=== PATIENT | male | born 1960 | race African-American/Black ===

== ENCOUNTER 2017-07-27 08:45 | Emergency (ER) | payer MEDICAID, OTHER ==
[~2017-07-27] VITALS: Ht 180.3 cm; Wt 88.0 kg
[~2017-07-27 08:45] MED LIST: ASPI-1159 PO; ATENOLOL; LISINOPRIL
[2017-07-27 10:03] LABS: HEMATOCRIT 40.9 % (42.0-52.0); MEAN CORPUSCULAR HEMOGLOBIN 32.1 pg (28.0-32.0); MEAN CORPUSCULAR VOLUME 93.8 fL (80.0-94.0); PLATELET 112 x1000/uL (130-400); RED BLOOD CELL COUNT 4.37 mill/uL (4.7-6.1); RED CELL DISTRIBUTION WIDTH 13.5 % (11.6-14.6)
[2017-07-27 10:17] LABS: CARBON DIOXIDE 23 mEq/L (21-32); CHLORIDE 104 mEq/L (98-107); TROPONIN I < 0.02 ng/mL (0.00-0.04)
[2017-07-27] MEDS ORDERED: HYDROCODONE/ACETAMINOPHEN 5/325MG TABLET PO ONE (11:30)
[2017-07-27 11:36] VITALS: BP 136/96
== END 2017-07-27 11:41 | disposition home or self-care (01) ==
LOC: ER 08:59
DX: S20.212A Contusion of left front wall of thorax, initial encounter (principal); I10 Essential (primary) hypertension; M19.90 Unspecified osteoarthritis, unspecified site; M10.9 Gout, unspecified; F17.210 Nicotine dependence, cigarettes, uncomplicated; Z88.8 Allergy status to other drugs, medicaments and biological substances; Z91.041 Radiographic dye allergy status; Z79.82 Long term (current) use of aspirin; W10.8XXA Fall (on) (from) other stairs and steps, initial encounter; Y93.89 Activity, other specified; Y92.018 Other place in single-family (private) house as the place of occurrence of the external cause
CPT/HCPCS: 36415; 71010; 71100; 80048; 84484; 85027; 93005; 99285

== ENCOUNTER 2018-01-11 14:56 | Emergency (ER) | payer OTHER ==
[~2018-01-11] VITALS: Ht 180.3 cm; Wt 87.0 kg
[2018-01-11 15:14] VITALS: BP 149/88
[2018-01-11] MEDS ORDERED: BACITRACIN ZINC OINT UDPKT TOP ONE (15:30)
[2018-01-11] MEDS ORDERED: LIDOCAINE HCL 1% 20ML VIAL (Pyxis) INJ MC ONE ×2 (15:30→17:45)
[2018-01-11] MEDS ORDERED: TETANUS, DIPHTHERIA, PERTUSSIS VAC/PF 0.5ML (>7YR OLD) IM ONE (15:30)
[2018-01-11] MEDS ORDERED: HYDROCODONE/ACETAMINOPHEN 5/325MG TABLET PO ONE (17:30)
[2018-01-11] MEDS ORDERED: LIDOCAINE HCL/PF 1% 10 MG/ML 5ML VIAL IJ SCH (18:15)
== END 2018-01-11 18:55 | disposition home or self-care (01) ==
LOC: ER 16:10
DX: S81.812A Laceration without foreign body, left lower leg, initial encounter (principal); I10 Essential (primary) hypertension; Z88.8 Allergy status to other drugs, medicaments and biological substances; Z91.041 Radiographic dye allergy status; W26.8XXA Contact with other sharp object(s), not elsewhere classified, initial encounter; Y93.89 Activity, other specified; Y92.810 Car as the place of occurrence of the external cause
CPT/HCPCS: 12004; 90471; 90715; 99283; J3490; Z7610

== ENCOUNTER 2018-01-28 14:07 | Emergency (ER) | payer OTHER ==
[~2018-01-28] VITALS: Ht 167.6 cm; Wt 88.0 kg
[2018-01-28 14:17] VITALS: BP 146/78
== END 2018-01-28 14:38 | disposition home or self-care (01) ==
LOC: ER 14:25
DX: L03.116 Cellulitis of left lower limb (principal); I10 Essential (primary) hypertension; M10.9 Gout, unspecified; Z79.82 Long term (current) use of aspirin; Z88.8 Allergy status to other drugs, medicaments and biological substances
CPT/HCPCS: 99283

== ENCOUNTER 2018-02-13 11:37 | Emergency (ER) | payer OTHER ==
[~2018-02-13] VITALS: Ht 167.6 cm; Wt 86.0 kg
[2018-02-13 11:42] VITALS: BP 107/75
== END 2018-02-13 12:22 | disposition home or self-care (01) ==
LOC: ER 11:50
DX: M67.431 Ganglion, right wrist (principal); M70.21 Olecranon bursitis, right elbow; M19.90 Unspecified osteoarthritis, unspecified site; M10.9 Gout, unspecified; Z88.8 Allergy status to other drugs, medicaments and biological substances; Z79.82 Long term (current) use of aspirin
CPT/HCPCS: 99281

== ENCOUNTER 2018-04-03 21:12 | Emergency (ER) | payer OTHER ==
[~2018-04-03] VITALS: Ht 180.3 cm; Wt 87.0 kg
[2018-04-03] MEDS ORDERED: SODIUM CHLORIDE 0.9% 1,000 ML IV ONE (23:45)
[2018-04-04 01:33] LABS: HEMATOCRIT. 28.6 % (42.0-52.0); HEMOGLOBIN. 9.3 g/dL (14.0-18.0); MEAN CORPUSCULAR HEMOGLOBIN 30.4 pg (28.0-32.0); MEAN CORPUSCULAR VOLUME 93.7 fL (80.0-94.0); MEAN PLATELET VOLUME 7.7 fl (7.4-10.4); PLATELET 188 x1000/uL (130-400); RED BLOOD CELL COUNT 3.05 mill/uL (4.7-6.1)
[2018-04-04 01:38] LABS: INR 1.1
[2018-04-04 01:42] LABS: CHLORIDE 109 mEq/L (98-107)
[2018-04-04 02:47] LABS: PLATELET ESTIMATE NORMAL
[2018-04-04 03:54] VITALS: BP 118/70
== END 2018-04-04 03:57 | disposition left against medical advice (07) ==
LOC: ER 21:12 → CANBEDREQ 04-04 04:07
DX: D64.9 Anemia, unspecified (principal); N28.9 Disorder of kidney and ureter, unspecified; G70.9 Myoneural disorder, unspecified
CPT/HCPCS: 36415; 80053; 85025; 85610; 86850; 86900; 86901; 93005; 96360; 96361; 99285; J7030

== ENCOUNTER 2018-06-08 08:52 | Emergency (ER) | payer OTHER ==
[~2018-06-08] VITALS: Ht 177.8 cm; Wt 87.0 kg
[2018-06-08] MEDS ORDERED: HYDROCODONE/ACETAMINOPHEN 5/325MG TABLET PO ONE (12:30)
[2018-06-08] MEDS ORDERED: KETOROLAC 60MG/2ML VIAL IM ONE (14:00)
[2018-06-08 15:18] VITALS: BP 149/98
== END 2018-06-08 15:25 | disposition home or self-care (01) ==
LOC: ER 08:52
DX: S13.8XXA Sprain of joints and ligaments of other parts of neck, initial encounter (principal); G70.00 Myasthenia gravis without (acute) exacerbation; I10 Essential (primary) hypertension; M19.90 Unspecified osteoarthritis, unspecified site; M10.9 Gout, unspecified; Z88.8 Allergy status to other drugs, medicaments and biological substances; Z91.041 Radiographic dye allergy status; X58.XXXA Exposure to other specified factors, initial encounter; Y93.89 Activity, other specified; Y92.018 Other place in single-family (private) house as the place of occurrence of the external cause
CPT/HCPCS: 72125; 93005; 96372; 99284; J1885

== ENCOUNTER 2019-04-27 08:37 | Inpatient (IN) | payer OTHER ==
[~2019-04-27] VITALS: Ht 175.3 cm; Wt 92.5 kg
[2019-04-27] VITALS (50 sets, daily range): BP systolic 71–174; BP diastolic 18–112
[~2019-04-27 08:37] MED LIST changes: -ASPI-1159 PO; +ASPI-1393 PO
[2019-04-27] MEDS ORDERED: SODIUM CHLORIDE 0.9% 1,000 ML IV ONE (08:56)
[2019-04-27] MEDS ORDERED: ONDANSETRON HCL 4MG/2ML INJ IV STA ×2 (08:56→10:01)
[2019-04-27] MEDS ORDERED: MORPHINE SULFATE 4 MG/ML CPJ (NOT FOR IM USE) IV STA ×2 (08:56→10:01)
[2019-04-27 09:30] LABS: HEMATOCRIT. 42.5 % (42.0-52.0); HEMOGLOBIN. 13.7 g/dL (14.0-18.0); MEAN CORPUSCULAR VOLUME 90.5 fL (80.0-94.0); MEAN PLATELET VOLUME 8.5 fl (7.4-10.4); PLATELET 285 x1000/uL (130-400); RED CELL DISTRIBUTION WIDTH 13.9 % (11.6-14.6)
[2019-04-27 09:36] LABS: CHLORIDE 112 mEq/L (98-107)
[2019-04-27 09:38] LABS: INR 1.1; PARTIAL THROMBOPLASTIN TIME 26.1 sec (23.4-31.0); PROTHROMBIN TIME 11.5 sec (9.6-11.0)
[2019-04-27] MEDS ORDERED: CALCIUM GLUCONATE 100MG/ML 10ML VIAL IV ONE (10:15)
[2019-04-27] MEDS ORDERED: PIPERACILLIN/TAZ 3.375G PREMIX 50 ML IV ONE (10:15)
[2019-04-27] MEDS ORDERED: DEXTROSE 50% WATER 50ML SYRINGE IV ONE (10:15)
[2019-04-27] MEDS ORDERED: SODIUM POLYSTYRENE SULFONATE 15 G/60 ML BOT PO ONE (10:15)
[2019-04-27] MEDS ORDERED: VANCOMYCIN 1 G PREMIX 200 ML IV ONE (10:15)
[2019-04-27] MEDS ORDERED: ALBUTEROL (0.083%) 2.5MG/3ML NEB HHN ONE (10:15)
[2019-04-27] MEDS ORDERED: INSULIN REGULAR (HUMULIN R) 300UNITS/3ML IV ONE (10:15)
[2019-04-27] MEDS ORDERED: SODIUM CHLORIDE 0.9% 1000ML BAG (SEPSIS BOLUS) IV ONE (10:15)
[2019-04-27] MEDS ORDERED: SODIUM BICARBONATE 8.4% 1 MEQ/ML 50ML SYR IV ONE (10:15)
[2019-04-27] MEDS ORDERED: PIPERACILLIN/TAZOBACTAM 3.375 G in DEXT 5% WATER 100 ML IV SCH (11:00)
[2019-04-27] MEDS ORDERED: ONDANSETRON HCL 4MG/2ML INJ IV PRN (11:00)
[2019-04-27 11:08] LABS: PLATELET ESTIMATE NORMAL
[2019-04-27] MEDS ORDERED: LIDOCAINE HCL 1% 20ML VIAL (Pyxis) INJ ONE (11:27)
[2019-04-27] MEDS: LORAZEPAM 2MG/ML CPJ IV PRN (13:42)
[2019-04-27] MEDS: SODIUM CHLORIDE 0.45% 1,000 ML IV SCH ×2 (13:43→20:38)
[2019-04-27 14:54] LABS: HEPATITIS B SURFACE ANTIGEN NEGATIVE
[2019-04-27] MEDS: ENOXAPARIN 30MG/0.3ML SYR SUBCUT SCH (15:22)
[2019-04-27 15:24] LABS: HEPATITIS A AB IGM NEGATIVE (NEGATIVE)
[2019-04-27] MEDS: NOREPINEPHRINE 8 MG in DEXT 5% WATER 242 ML IV PRN (15:30)
[2019-04-27] MEDS: PIPERACILLIN/TAZOBACTAM 2.25 G in DEXTROSE 5% WATER 50 ML IV SCH ×2 (18:00→20:35)
[2019-04-27] MEDS ORDERED: VANCOMYCIN 750 MG PREMIX 150 ML IV SCH (21:00)
[2019-04-27 21:19] LABS: BG BASE EXCESS -3.7 mmol/L (-2.0-2.0); BG CARBOXYHEMOGLOBIN 0.3 % (0.5-1.5); BG DEOXYHEMOGLOBIN 1.5 % (0.0-5.0); BG FRACTION INSPIRED OXYGEN 100; BG HCO3 ACT 18.2 mmol/L (22.0-26.0); BG METHEMOGLOBIN 0.3 % (0.0-1.5); BG OXYGEN SATURATION 98.5 % (92.0-98.5); BG OXYHEMOGLOBIN 97.9 % (94.0-97.0); BG PCO2 25.3 mmHg (35.0-45.0); BG PH 7.475 (7.350-7.450); BG PO2 414.9 mmHg (75.0-100.0); BG SAMPLE SITE RIGHT RADIAL; BG TOTAL HEMOGLOBIN 13.6 g/dL (12.0-18.0); BG VENT MODE MASK - NRB
[2019-04-27] MEDS: LEVETIRACETAM 250 MG in SODIUM CHLORIDE 0.9% 100 ML IV SCH (21:35)
[2019-04-28] VITALS (56 sets, daily range): BP systolic 54–130; BP diastolic 31–79
[2019-04-28] MEDS: PIPERACILLIN/TAZOBACTAM 2.25 G in DEXTROSE 5% WATER 50 ML IV SCH ×3 (03:36→18:48)
[2019-04-28 05:12] LABS: HEMATOCRIT. 40.8 % (42.0-52.0); HEMOGLOBIN. 13.2 g/dL (14.0-18.0); MEAN CORPUSCULAR HEMOGLOBIN 29.2 pg (28.0-32.0); MEAN CORPUSCULAR VOLUME 90.4 fL (80.0-94.0); MEAN PLATELET VOLUME 8.4 fl (7.4-10.4); PLATELET 141 x1000/uL (130-400); RED BLOOD CELL COUNT 4.52 mill/uL (4.7-6.1); RED CELL DISTRIBUTION WIDTH 13.6 % (11.6-14.6)
[2019-04-28 05:17] LABS: CHLORIDE 103 mEq/L (98-107)
[2019-04-28] MEDS: SODIUM CHLORIDE 0.45% 1,000 ML IV SCH ×4 (05:39→22:50)
[2019-04-28 06:41] LABS: CLARITY URINE CLOUDY (CLEAR); COLOR URINE DARK YELLOW (YELLOW); KETONES URINE NEGATIVE (NEGATIVE); LEUKOCYTE ESTERASE URINE 1+ (NEGATIVE); NITRITE URINE NEGATIVE (NEGATIVE); OCCULT BLOOD URINE 3+ (NEGATIVE); PROTEIN URINE 2+ (NEGATIVE); SPECIFIC GRAVITY URINE 1.019 (1.005-1.030)
[2019-04-28 07:09] LABS: *AMPHETAMINES SCREEN URINE NEGATIVE (NEGATIVE); *BARBITURATES SCREEN URINE NEGATIVE (NEGATIVE); *COCAINE SCREEN URINE NEGATIVE (NEGATIVE)
[2019-04-28 07:10] LABS: *BENZODIAZEPINES SCREEN URINE NEGATIVE (NEGATIVE); CANNABINOID URINE SCREEN NEGATIVE (NEGATIVE); METHADONE URINE SCREEN NEGATIVE (NEGATIVE); OPIATES URINE SCREEN PRESUMTIVE POSITIVE (NEGATIVE); PHENCYCLIDINE URINE SCREEN NEGATIVE (NEGATIVE)
[2019-04-28 07:23] LABS: PLATELET ESTIMATE NORMAL
[2019-04-28] MEDS: LEVETIRACETAM 250 MG in SODIUM CHLORIDE 0.9% 100 ML IV SCH ×2 (08:47→20:53)
[2019-04-28] MEDS: MORPHINE SULFATE 2 MG/ML CPJ (NOT FOR IM USE) IV PRN ×2 (11:26→21:10)
[2019-04-28] MEDS ORDERED: IPRATROPIUM/ALBUTEROL 0.5-3(2.5)MG/3ML NEB HHN PRN (12:45)
[2019-04-28 13:13] LABS: ANTI-NUCLEAR ANTIBODIES DIRECT Negative (Negative)
[2019-04-28] MEDS: THIAMINE HCL 100 MG in SODIUM CHLORIDE 0.9% 50 ML IV SCH (13:33)
[2019-04-28] MEDS: ENOXAPARIN 30MG/0.3ML SYR SUBCUT SCH (13:40)
[2019-04-28 15:51] LABS: T4 FREE 0.71 ng/dL (0.76-1.46)
[2019-04-28] MEDS: IPRATROPIUM/ALBUTEROL 0.5-3(2.5)MG/3ML NEB HHN SCH ×2 (16:07→20:13)
[2019-04-28] MEDS: ACETYLCYSTEINE 100MG/ML 10% VIAL 4ML INH SCH (16:07)
[2019-04-28] MEDS: NOREPINEPHRINE 8 MG in DEXT 5% WATER 242 ML IV PRN (20:17)
[2019-04-29] VITALS (71 sets, daily range): BP systolic 48–217; BP diastolic 26–185
[2019-04-29] MEDS: PIPERACILLIN/TAZOBACTAM 2.25 G in DEXTROSE 5% WATER 50 ML IV SCH ×3 (01:34→18:54)
[2019-04-29] MEDS: IPRATROPIUM/ALBUTEROL 0.5-3(2.5)MG/3ML NEB HHN SCH ×4 (01:38→20:40)
[2019-04-29 05:07] LABS: HEMATOCRIT. 34.3 % (42.0-52.0); HEMOGLOBIN. 11.3 g/dL (14.0-18.0); MEAN CORPUSCULAR HEMOGLOBIN 29.4 pg (28.0-32.0); MEAN CORPUSCULAR VOLUME 89.2 fL (80.0-94.0); MEAN PLATELET VOLUME 8.4 fl (7.4-10.4); PLATELET 115 x1000/uL (130-400); RED BLOOD CELL COUNT 3.84 mill/uL (4.7-6.1); RED CELL DISTRIBUTION WIDTH 13.3 % (11.6-14.6)
[2019-04-29] MEDS: SODIUM CHLORIDE 0.45% 1,000 ML IV SCH ×2 (05:13→18:55)
[2019-04-29 05:15] LABS: HIV SCREEN 4G Non Reactive (Non Reactive)
[2019-04-29] MEDS ORDERED: LEVOTHYROXINE SODIUM 25MCG TABLET PO SCH (06:45)
[2019-04-29 08:07] LABS: COMPLEMENT C3 176 mg/dL (82-167)
[2019-04-29] MEDS: THIAMINE HCL 100 MG in SODIUM CHLORIDE 0.9% 50 ML IV SCH (08:40)
[2019-04-29] MEDS: ACETYLCYSTEINE 100MG/ML 10% VIAL 4ML INH SCH ×2 (08:56→13:40)
[2019-04-29] MEDS: LEVETIRACETAM 250 MG in SODIUM CHLORIDE 0.9% 100 ML IV SCH ×2 (09:25→20:59)
[2019-04-29] MEDS ORDERED: VANCOMYCIN 1500MG in DEXTROSE 5% WATER 250ML IV SCH (10:00)
[2019-04-29 12:24] LABS: PLATELET ESTIMATE SLIGHTLY DECREASED
[2019-04-29] MEDS: ENOXAPARIN 30MG/0.3ML SYR SUBCUT SCH (14:30)
[2019-04-29] MEDS: LEVOTHYROXINE SODIUM 100 MCG/ VIAL IV SCH (21:00)
[2019-04-29] MEDS ORDERED: PHENYLEPHRINE 20 MG in DEXT 5% WATER 498 ML IV PRN (22:45)
[2019-04-29] MEDS: MORPHINE SULFATE 2 MG/ML CPJ (NOT FOR IM USE) IV PRN (23:06)
[2019-04-30] VITALS (40 sets, daily range): BP systolic 44–128; BP diastolic 37–81
[2019-04-30] MEDS: IPRATROPIUM/ALBUTEROL 0.5-3(2.5)MG/3ML NEB HHN SCH ×5 (02:31→22:24)
[2019-04-30] MEDS: PIPERACILLIN/TAZOBACTAM 2.25 G in DEXTROSE 5% WATER 50 ML IV SCH ×2 (02:55→12:41)
[2019-04-30 05:03] LABS: HEMATOCRIT. 35.1 % (42.0-52.0); HEMOGLOBIN. 11.5 g/dL (14.0-18.0); MEAN CORPUSCULAR HEMOGLOBIN 29.2 pg (28.0-32.0); MEAN CORPUSCULAR VOLUME 89.3 fL (80.0-94.0); MEAN PLATELET VOLUME 8.4 fl (7.4-10.4); PLATELET 137 x1000/uL (130-400); RED BLOOD CELL COUNT 3.93 mill/uL (4.7-6.1); RED CELL DISTRIBUTION WIDTH 13.5 % (11.6-14.6)
[2019-04-30] MEDS ORDERED: LEVOTHYROXINE SODIUM 75MCG TABLET PO SCH (06:30)
[2019-04-30 07:01] LABS: PLATELET ESTIMATE NORMAL
[2019-04-30] MEDS: THIAMINE HCL 100 MG in SODIUM CHLORIDE 0.9% 50 ML IV SCH (08:24)
[2019-04-30] MEDS: LEVETIRACETAM 250 MG in SODIUM CHLORIDE 0.9% 100 ML IV SCH ×2 (08:25→20:59)
[2019-04-30] MEDS: ACETYLCYSTEINE 100MG/ML 10% VIAL 4ML INH SCH (09:48)
[2019-04-30] MEDS: LEVOTHYROXINE SODIUM 100 MCG/ VIAL IV SCH (10:08)
[2019-04-30] MEDS ORDERED: LACTULOSE 20G/30ML UDC PO NR (11:15)
[2019-04-30] MEDS: SODIUM CHLORIDE 0.45% 1,000 ML IV SCH (11:45)
[2019-04-30] MEDS ORDERED: CEFAZOLIN SODIUM 1000MG/VIAL IV SCH (13:30)
[2019-04-30] MEDS: MORPHINE SULFATE 2 MG/ML CPJ (NOT FOR IM USE) IV PRN ×2 (14:46→21:14)
[2019-04-30] MEDS: CEFAZOLIN 1000MG PREMIX 50 ML IV SCH (17:29)
[2019-04-30] MEDS: LORAZEPAM 2MG/ML CPJ IV PRN (21:22)
[2019-05-01] VITALS (11 sets, daily range): BP systolic 102–154; BP diastolic 56–99
[2019-05-01] MEDS: SODIUM CHLORIDE 0.45% 1,000 ML IV SCH ×2 (03:41→21:52)
[2019-05-01] MEDS: MORPHINE SULFATE 2 MG/ML CPJ (NOT FOR IM USE) IV PRN (06:42)
[2019-05-01 08:06] LABS: HEMATOCRIT. 30.2 % (42.0-52.0); HEMOGLOBIN. 9.9 g/dL (14.0-18.0); MEAN CORPUSCULAR HEMOGLOBIN 29.1 pg (28.0-32.0); MEAN CORPUSCULAR VOLUME 88.6 fL (80.0-94.0); MEAN PLATELET VOLUME 8.4 fl (7.4-10.4); PLATELET 114 x1000/uL (130-400); RED BLOOD CELL COUNT 3.41 mill/uL (4.7-6.1); RED CELL DISTRIBUTION WIDTH 13.4 % (11.6-14.6)
[2019-05-01 08:32] LABS: CHLORIDE 112 mEq/L (98-107)
[2019-05-01 08:45] LABS: PHOSPHORUS 2.6 mg/dL (2.5-4.9)
[2019-05-01 09:00] LABS: CREATINE KINASE 2875 IU/L (39-308)
[2019-05-01] MEDS: LEVETIRACETAM 250 MG in SODIUM CHLORIDE 0.9% 100 ML IV SCH ×2 (09:37→21:46)
[2019-05-01] MEDS: LEVOTHYROXINE SODIUM 100 MCG/ VIAL IV SCH (09:37)
[2019-05-01] MEDS: METOPROLOL TARTRATE 50MG TABLET PO SCH ×2 (09:54→21:51)
[2019-05-01 10:20] LABS: PLATELET ESTIMATE SLIGHTLY DECREASED
[2019-05-01] MEDS: IPRATROPIUM/ALBUTEROL 0.5-3(2.5)MG/3ML NEB HHN SCH ×3 (12:47→20:45)
[2019-05-01] MEDS ORDERED: ALBUMIN HUMAN 25GM/500ML (5%) IV SCH (15:00)
[2019-05-01] MEDS: CEFAZOLIN 1000MG PREMIX 50 ML IV SCH (15:08)
[2019-05-01] MEDS: PYRIDOSTIGMINE BROMIDE 60MG TABLET PO SCH ×2 (18:00→21:00)
[2019-05-02] VITALS (9 sets, daily range): BP systolic 127–161; BP diastolic 65–94
[2019-05-02] MEDS: ACETYLCYSTEINE 100MG/ML 10% VIAL 4ML INH SCH ×3 (01:50→14:03)
[2019-05-02] MEDS: IPRATROPIUM/ALBUTEROL 0.5-3(2.5)MG/3ML NEB HHN SCH ×4 (01:51→20:17)
[2019-05-02 08:13] LABS: HEMATOCRIT. 29.1 % (42.0-52.0); HEMOGLOBIN. 9.6 g/dL (14.0-18.0); MEAN CORPUSCULAR HEMOGLOBIN 29.3 pg (28.0-32.0); MEAN CORPUSCULAR VOLUME 89.2 fL (80.0-94.0); MEAN PLATELET VOLUME 8.6 fl (7.4-10.4); PLATELET 110 x1000/uL (130-400); RED BLOOD CELL COUNT 3.27 mill/uL (4.7-6.1); RED CELL DISTRIBUTION WIDTH 13.6 % (11.6-14.6)
[2019-05-02 08:48] LABS: CHLORIDE 112 mEq/L (98-107)
[2019-05-02] MEDS: LEVETIRACETAM 250 MG in SODIUM CHLORIDE 0.9% 100 ML IV SCH ×2 (09:32→21:45)
[2019-05-02] MEDS: METOPROLOL TARTRATE 50MG TABLET PO SCH ×2 (09:32→21:46)
[2019-05-02] MEDS: LEVOTHYROXINE SODIUM 100 MCG/ VIAL IV SCH (09:32)
[2019-05-02] MEDS: PYRIDOSTIGMINE BROMIDE 60MG TABLET PO SCH ×4 (09:32→21:46)
[2019-05-02 10:06] LABS: PLATELET ESTIMATE DECREASED
[2019-05-02] MEDS: CEFAZOLIN 1000MG PREMIX 50 ML IV SCH (15:39)
[2019-05-03] VITALS (11 sets, daily range): BP systolic 131–172; BP diastolic 66–98
[2019-05-03] MEDS: IPRATROPIUM/ALBUTEROL 0.5-3(2.5)MG/3ML NEB HHN SCH ×4 (01:57→21:15)
[2019-05-03 05:19] LABS: HEMATOCRIT. 30.7 % (42.0-52.0); HEMOGLOBIN. 9.9 g/dL (14.0-18.0); MEAN CORPUSCULAR HEMOGLOBIN 28.6 pg (28.0-32.0); MEAN CORPUSCULAR VOLUME 88.4 fL (80.0-94.0); MEAN PLATELET VOLUME 8.4 fl (7.4-10.4); PLATELET 121 x1000/uL (130-400); RED BLOOD CELL COUNT 3.48 mill/uL (4.7-6.1); RED CELL DISTRIBUTION WIDTH 13.7 % (11.6-14.6)
[2019-05-03 06:02] LABS: CHLORIDE 112 mEq/L (98-107)
[2019-05-03 06:29] LABS: CREATINE KINASE 1425 IU/L (39-308)
[2019-05-03] MEDS: ACETYLCYSTEINE 100MG/ML 10% VIAL 4ML INH SCH ×2 (08:15→08:55)
[2019-05-03] MEDS: LEVOTHYROXINE SODIUM 100 MCG/ VIAL IV SCH (08:56)
[2019-05-03] MEDS: LEVETIRACETAM 250 MG in SODIUM CHLORIDE 0.9% 100 ML IV SCH ×2 (08:56→20:22)
[2019-05-03] MEDS: METOPROLOL TARTRATE 50MG TABLET PO SCH ×2 (08:57→20:20)
[2019-05-03] MEDS: PYRIDOSTIGMINE BROMIDE 60MG TABLET PO SCH ×4 (08:57→20:20)
[2019-05-03] MEDS ORDERED: POTASSIUM CHLORIDE 20MEQ/PACKET PO NR (10:45)
[2019-05-03 14:15] LABS: PLATELET ESTIMATE DECREAS
[2019-05-03] MEDS: CEFAZOLIN 1000MG PREMIX 50 ML IV SCH (15:08)
[2019-05-03] MEDS ORDERED: ACETAMINOPHEN 325MG TABLET PO PRN (21:15)
[2019-05-03] MEDS ORDERED: CLONIDINE 0.1MG TABLET PO PRN (21:15)
[2019-05-04] VITALS (14 sets, daily range): BP systolic 133–158; BP diastolic 68–102
[2019-05-04] MEDS: IPRATROPIUM/ALBUTEROL 0.5-3(2.5)MG/3ML NEB HHN SCH ×5 (00:52→20:01)
[2019-05-04] MEDS ORDERED: DILTIAZEM HCL 5MG/ML 5ML VIAL IV NR (06:21)
[2019-05-04 06:39] LABS: HEMOGLOBIN. 9.9 g/dL (14.0-18.0); MEAN CORPUSCULAR VOLUME 87.7 fL (80.0-94.0); MEAN PLATELET VOLUME 8.5 fl (7.4-10.4); PLATELET 146 x1000/uL (130-400); RED BLOOD CELL COUNT 3.42 mill/uL (4.7-6.1); RED CELL DISTRIBUTION WIDTH 13.9 % (11.6-14.6)
[2019-05-04 07:30] LABS: CHLORIDE 111 mEq/L (98-107)
[2019-05-04 08:12] LABS: CREATINE KINASE 1273 IU/L (39-308)
[2019-05-04] MEDS: PYRIDOSTIGMINE BROMIDE 60MG TABLET PO SCH ×5 (09:00→21:00)
[2019-05-04] MEDS ORDERED: HYDROCODONE/ACETAMINOPHEN 5/325MG TABLET PO PRN (09:45)
[2019-05-04] MEDS: LEVETIRACETAM 250 MG in SODIUM CHLORIDE 0.9% 100 ML IV SCH ×2 (09:56→21:24)
[2019-05-04] MEDS: LEVOTHYROXINE SODIUM 100 MCG/ VIAL IV SCH (09:56)
[2019-05-04] MEDS: METOPROLOL TARTRATE 50MG TABLET PO SCH ×2 (09:56→21:23)
[2019-05-04 10:11] LABS: SACCHAROMYCES CEREVISIAE IGG 58.7 Units (0.0-24.9)
[2019-05-04 10:32] LABS: PLATELET ESTIMATE NORMAL
[2019-05-04 15:11] LABS: ATYPICAL pANCA <1:20 titer (Neg:<1:20)
[2019-05-04] MEDS: CEFAZOLIN 1000MG PREMIX 50 ML IV SCH (15:50)
[2019-05-04] MEDS: MORPHINE SULFATE 2 MG/ML CPJ (NOT FOR IM USE) IV PRN ×2 (15:50→21:22)
[2019-05-04] MEDS: DILTIAZEM HCL 125 MG in DEXT 5% WATER 100 ML IV PRN (21:26)
[2019-05-05] VITALS (17 sets, daily range): BP systolic 122–154; BP diastolic 66–101
[2019-05-05] MEDS: IPRATROPIUM/ALBUTEROL 0.5-3(2.5)MG/3ML NEB HHN SCH ×4 (03:35→21:48)
[2019-05-05 06:59] LABS: HEMATOCRIT. 27.7 % (42.0-52.0); HEMOGLOBIN. 9.2 g/dL (14.0-18.0); MEAN CORPUSCULAR HEMOGLOBIN 28.8 pg (28.0-32.0); MEAN CORPUSCULAR VOLUME 86.9 fL (80.0-94.0); MEAN PLATELET VOLUME 8.4 fl (7.4-10.4); PLATELET 180 x1000/uL (130-400); RED BLOOD CELL COUNT 3.19 mill/uL (4.7-6.1); RED CELL DISTRIBUTION WIDTH 13.7 % (11.6-14.6)
[2019-05-05 07:45] LABS: CHLORIDE 109 mEq/L (98-107)
[2019-05-05] MEDS ORDERED: LIDOCAINE HCL 1% 20ML VIAL (Pyxis) INJ ONE (07:49)
[2019-05-05 08:06] LABS: CREATINE KINASE 910 IU/L (39-308)
[2019-05-05] MEDS: PYRIDOSTIGMINE BROMIDE 60MG TABLET PO SCH ×4 (08:45→21:42)
[2019-05-05] MEDS: METOPROLOL TARTRATE 50MG TABLET PO SCH ×2 (08:45→21:31)
[2019-05-05] MEDS: LEVETIRACETAM 250 MG in SODIUM CHLORIDE 0.9% 100 ML IV SCH ×2 (08:45→21:31)
[2019-05-05] MEDS: LEVOTHYROXINE SODIUM 100 MCG/ VIAL IV SCH (08:52)
[2019-05-05] MEDS: DILTIAZEM HCL 125 MG in DEXT 5% WATER 100 ML IV PRN ×2 (13:10→23:59)
[2019-05-05] MEDS: CEFAZOLIN 1000MG PREMIX 50 ML IV SCH ×2 (15:00→21:31)
[2019-05-05 17:38] LABS: PLATELET ESTIMATE NORMAL
[2019-05-05] MEDS: MORPHINE SULFATE 2 MG/ML CPJ (NOT FOR IM USE) IV PRN ×2 (18:58→22:35)
[2019-05-05] MEDS: BISACODYL 5MG TABLET PO PRN (21:31)
[2019-05-06] VITALS (13 sets, daily range): BP systolic 126–159; BP diastolic 53–99
[2019-05-06] MEDS: IPRATROPIUM/ALBUTEROL 0.5-3(2.5)MG/3ML NEB HHN SCH ×4 (02:32→21:52)
[2019-05-06] MEDS: MORPHINE SULFATE 2 MG/ML CPJ (NOT FOR IM USE) IV PRN ×4 (04:32→22:26)
[2019-05-06] MEDS: CEFAZOLIN 1000MG PREMIX 50 ML IV SCH ×3 (05:58→22:27)
[2019-05-06] MEDS: LEVETIRACETAM 250 MG in SODIUM CHLORIDE 0.9% 100 ML IV SCH ×2 (08:36→21:34)
[2019-05-06] MEDS: LEVOTHYROXINE SODIUM 100 MCG/ VIAL IV SCH (08:36)
[2019-05-06] MEDS: PYRIDOSTIGMINE BROMIDE 60MG TABLET PO SCH ×4 (09:00→21:00)
[2019-05-06] MEDS: METOPROLOL TARTRATE 50MG TABLET PO SCH ×2 (09:25→21:34)
[2019-05-06 09:58] LABS: HEMATOCRIT. 29.2 % (42.0-52.0); HEMOGLOBIN. 9.6 g/dL (14.0-18.0); MEAN CORPUSCULAR VOLUME 88.5 fL (80.0-94.0); MEAN PLATELET VOLUME 8.3 fl (7.4-10.4); PLATELET 207 x1000/uL (130-400); RED CELL DISTRIBUTION WIDTH 13.5 % (11.6-14.6)
[2019-05-06 10:13] LABS: CHLORIDE 108 mEq/L (98-107)
[2019-05-06 10:31] LABS: CREATINE KINASE 877 IU/L (39-308)
[2019-05-06 10:39] LABS: PLATELET ESTIMATE NORMAL
[2019-05-06 13:10] LABS: AChR BLOCKING ABS SERUM 22 % (0-25)
[2019-05-06] MEDS: DILTIAZEM HCL 125 MG in DEXT 5% WATER 100 ML IV PRN (15:13)
[2019-05-07] VITALS (12 sets, daily range): BP systolic 114–145; BP diastolic 58–90
[2019-05-07] MEDS: IPRATROPIUM/ALBUTEROL 0.5-3(2.5)MG/3ML NEB HHN SCH ×4 (01:35→20:01)
[2019-05-07] MEDS: MORPHINE SULFATE 2 MG/ML CPJ (NOT FOR IM USE) IV PRN ×5 (02:37→20:23)
[2019-05-07] MEDS: CEFAZOLIN 1000MG PREMIX 50 ML IV SCH ×3 (05:57→22:33)
[2019-05-07 06:33] LABS: HEMATOCRIT. 27.5 % (42.0-52.0); HEMOGLOBIN. 9.2 g/dL (14.0-18.0); MEAN CORPUSCULAR HEMOGLOBIN 28.9 pg (28.0-32.0); MEAN CORPUSCULAR VOLUME 86.8 fL (80.0-94.0); MEAN PLATELET VOLUME 7.9 fl (7.4-10.4); PLATELET 204 x1000/uL (130-400); RED BLOOD CELL COUNT 3.17 mill/uL (4.7-6.1); RED CELL DISTRIBUTION WIDTH 13.6 % (11.6-14.6)
[2019-05-07 07:23] LABS: CHLORIDE 106 mEq/L (98-107)
[2019-05-07 08:08] LABS: PLATELET ESTIMATE NORMAL
[2019-05-07] MEDS: DILTIAZEM HCL 125 MG in DEXT 5% WATER 100 ML IV PRN ×2 (09:02→23:59)
[2019-05-07] MEDS: PYRIDOSTIGMINE BROMIDE 60MG TABLET PO SCH ×4 (09:02→20:20)
[2019-05-07] MEDS: LEVETIRACETAM 250 MG in SODIUM CHLORIDE 0.9% 100 ML IV SCH ×2 (09:02→20:21)
[2019-05-07] MEDS: LEVOTHYROXINE SODIUM 100 MCG/ VIAL IV SCH (09:02)
[2019-05-07] MEDS: METOPROLOL TARTRATE 50MG TABLET PO SCH ×2 (09:03→20:20)
[2019-05-07] MEDS: CYCLOBENZAPRINE 10MG TABLET PO PRN (20:21)
[2019-05-08] VITALS (12 sets, daily range): BP systolic 120–157; BP diastolic 71–102
[2019-05-08] MEDS: IPRATROPIUM/ALBUTEROL 0.5-3(2.5)MG/3ML NEB HHN SCH ×4 (02:12→20:12)
[2019-05-08] MEDS: MORPHINE SULFATE 2 MG/ML CPJ (NOT FOR IM USE) IV PRN ×5 (02:21→20:23)
[2019-05-08] MEDS: CYCLOBENZAPRINE 10MG TABLET PO PRN ×2 (05:12→18:20)
[2019-05-08] MEDS: CEFAZOLIN 1000MG PREMIX 50 ML IV SCH ×3 (05:13→21:02)
[2019-05-08 07:14] LABS: HEMATOCRIT. 29.4 % (42.0-52.0); HEMOGLOBIN. 9.5 g/dL (14.0-18.0); MEAN CORPUSCULAR HEMOGLOBIN 28.2 pg (28.0-32.0); MEAN CORPUSCULAR VOLUME 87.4 fL (80.0-94.0); MEAN PLATELET VOLUME 7.8 fl (7.4-10.4); PLATELET 228 x1000/uL (130-400); RED BLOOD CELL COUNT 3.36 mill/uL (4.7-6.1); RED CELL DISTRIBUTION WIDTH 13.7 % (11.6-14.6)
[2019-05-08 07:20] LABS: CHLORIDE 106 mEq/L (98-107)
[2019-05-08] MEDS: PYRIDOSTIGMINE BROMIDE 60MG TABLET PO SCH ×4 (09:00→20:03)
[2019-05-08] MEDS: LEVETIRACETAM 250 MG in SODIUM CHLORIDE 0.9% 100 ML IV SCH ×2 (09:14→20:02)
[2019-05-08] MEDS: LEVOTHYROXINE SODIUM 100 MCG/ VIAL IV SCH (09:15)
[2019-05-08] MEDS: METOPROLOL TARTRATE 50MG TABLET PO SCH (09:17)
[2019-05-08] MEDS ORDERED: MAGNESIUM 2 G PREMIX 50 ML IV NR (14:00)
[2019-05-08 14:21] LABS: CLARITY URINE CLEAR (CLEAR); COLOR URINE YELLOW (YELLOW); KETONES URINE NEGATIVE (NEGATIVE); LEUKOCYTE ESTERASE URINE NEGATIVE (NEGATIVE); NITRITE URINE NEGATIVE (NEGATIVE); OCCULT BLOOD URINE 1+ (NEGATIVE); PROTEIN URINE TRACE (NEGATIVE); SPECIFIC GRAVITY URINE 1.014 (1.005-1.030)
[2019-05-08] MEDS: DIPHENHYDRAMINE 25MG CAPSULE PO PRN (18:19)
[2019-05-08 19:40] LABS: PLATELET ESTIMATE NORMAL
[2019-05-08] MEDS: METOPROLOL TARTRATE 100MG TABLET PO SCH (20:03)
[2019-05-09] VITALS (12 sets, daily range): BP systolic 105–162; BP diastolic 68–89
[2019-05-09] MEDS: IPRATROPIUM/ALBUTEROL 0.5-3(2.5)MG/3ML NEB HHN SCH ×3 (01:22→15:06)
[2019-05-09] MEDS: CEFAZOLIN 1000MG PREMIX 50 ML IV SCH ×3 (05:35→20:58)
[2019-05-09] MEDS: CYCLOBENZAPRINE 10MG TABLET PO PRN (05:43)
[2019-05-09] MEDS: MORPHINE SULFATE 2 MG/ML CPJ (NOT FOR IM USE) IV PRN ×4 (05:44→21:07)
[2019-05-09] MEDS: DIPHENHYDRAMINE 25MG CAPSULE PO PRN ×3 (05:53→20:58)
[2019-05-09 06:05] LABS: CHLORIDE 106 mEq/L (98-107)
[2019-05-09 06:24] LABS: HEMATOCRIT. 26.3 % (42.0-52.0); HEMOGLOBIN. 8.5 g/dL (14.0-18.0); MEAN CORPUSCULAR HEMOGLOBIN 28.4 pg (28.0-32.0); MEAN CORPUSCULAR VOLUME 87.3 fL (80.0-94.0); MEAN PLATELET VOLUME 7.9 fl (7.4-10.4); PLATELET 240 x1000/uL (130-400); RED BLOOD CELL COUNT 3.01 mill/uL (4.7-6.1); RED CELL DISTRIBUTION WIDTH 13.7 % (11.6-14.6)
[2019-05-09] MEDS: LEVETIRACETAM 250 MG in SODIUM CHLORIDE 0.9% 100 ML IV SCH ×2 (08:56→20:58)
[2019-05-09] MEDS: PYRIDOSTIGMINE BROMIDE 60MG TABLET PO SCH ×4 (08:56→20:58)
[2019-05-09] MEDS: METOPROLOL TARTRATE 100MG TABLET PO SCH ×2 (08:56→20:58)
[2019-05-09] MEDS: LEVOTHYROXINE SODIUM 100 MCG/ VIAL IV SCH (08:57)
[2019-05-09 10:36] LABS: PLATELET ESTIMATE NORMAL
[2019-05-09 16:58] LABS: CREATINE KINASE 539 IU/L (39-308)
[2019-05-10] VITALS (12 sets, daily range): BP systolic 96–143; BP diastolic 57–91
[2019-05-10 05:30] LABS: HEMATOCRIT. 27.2 % (42.0-52.0); MEAN CORPUSCULAR HEMOGLOBIN 28.5 pg (28.0-32.0); MEAN CORPUSCULAR VOLUME 86.5 fL (80.0-94.0); MEAN PLATELET VOLUME 7.4 fl (7.4-10.4); PLATELET 265 x1000/uL (130-400); RED BLOOD CELL COUNT 3.15 mill/uL (4.7-6.1); RED CELL DISTRIBUTION WIDTH 13.5 % (11.6-14.6)
[2019-05-10 05:34] LABS: CHLORIDE 104 mEq/L (98-107)
[2019-05-10] MEDS: CEFAZOLIN 1000MG PREMIX 50 ML IV SCH ×3 (05:59→21:54)
[2019-05-10] MEDS: MORPHINE SULFATE 2 MG/ML CPJ (NOT FOR IM USE) IV PRN ×4 (07:04→21:55)
[2019-05-10] MEDS: LEVETIRACETAM 250 MG in SODIUM CHLORIDE 0.9% 100 ML IV SCH ×2 (08:47→21:54)
[2019-05-10] MEDS: METOPROLOL TARTRATE 100MG TABLET PO SCH ×2 (08:47→21:54)
[2019-05-10] MEDS: LEVOTHYROXINE SODIUM 100 MCG/ VIAL IV SCH (08:47)
[2019-05-10] MEDS: PYRIDOSTIGMINE BROMIDE 60MG TABLET PO SCH ×4 (08:48→21:55)
[2019-05-10 10:19] LABS: PLATELET ESTIMATE NORMAL
[2019-05-10] MEDS: FERROUS SULFATE 325MG TABLET PO SCH ×2 (13:16→18:37)
[2019-05-10] MEDS: DIPHENHYDRAMINE 25MG CAPSULE PO PRN ×2 (18:37→21:54)
[2019-05-10] MEDS: ASCORBIC ACID 500 MG TABLET PO SCH (21:54)
[2019-05-11] VITALS (10 sets, daily range): BP systolic 120–154; BP diastolic 70–96
[2019-05-11] MEDS: CYCLOBENZAPRINE 10MG TABLET PO PRN ×2 (00:26→09:17)
[2019-05-11] MEDS: MORPHINE SULFATE 2 MG/ML CPJ (NOT FOR IM USE) IV PRN ×7 (02:11→20:43)
[2019-05-11] MEDS: CEFAZOLIN 1000MG PREMIX 50 ML IV SCH ×3 (04:58→20:51)
[2019-05-11] MEDS: DIPHENHYDRAMINE 25MG CAPSULE PO PRN (06:08)
[2019-05-11 06:39] LABS: HEMATOCRIT. 27.1 % (42.0-52.0); HEMOGLOBIN. 9.1 g/dL (14.0-18.0); MEAN CORPUSCULAR HEMOGLOBIN 28.9 pg (28.0-32.0); MEAN CORPUSCULAR VOLUME 86.4 fL (80.0-94.0); MEAN PLATELET VOLUME 7.4 fl (7.4-10.4); PLATELET 291 x1000/uL (130-400); RED BLOOD CELL COUNT 3.14 mill/uL (4.7-6.1); RED CELL DISTRIBUTION WIDTH 13.6 % (11.6-14.6)
[2019-05-11] MEDS: ASCORBIC ACID 500 MG TABLET PO SCH ×2 (09:03→20:51)
[2019-05-11] MEDS: PYRIDOSTIGMINE BROMIDE 60MG TABLET PO SCH ×4 (09:03→20:25)
[2019-05-11] MEDS: FERROUS SULFATE 325MG TABLET PO SCH ×3 (09:03→18:06)
[2019-05-11] MEDS: LEVOTHYROXINE SODIUM 100 MCG/ VIAL IV SCH (09:04)
[2019-05-11] MEDS: LEVETIRACETAM 250 MG in SODIUM CHLORIDE 0.9% 100 ML IV SCH ×2 (09:04→20:50)
[2019-05-11] MEDS: METOPROLOL TARTRATE 100MG TABLET PO SCH ×2 (09:04→20:51)
[2019-05-11 10:41] LABS: PLATELET ESTIMATE NORMAL
[2019-05-12] VITALS (9 sets, daily range): BP systolic 129–154; BP diastolic 73–90
[2019-05-12] MEDS: CYCLOBENZAPRINE 10MG TABLET PO PRN ×2 (02:33→11:28)
[2019-05-12] MEDS ORDERED: MORPHINE SULFATE 2 MG/ML CPJ (NOT FOR IM USE) IV PRN (05:30)
[2019-05-12] MEDS: MORPHINE SULFATE 2 MG/ML CPJ (NOT FOR IM USE) IV PRN ×5 (06:45→17:32)
[2019-05-12] MEDS: CEFAZOLIN 1000MG PREMIX 50 ML IV SCH ×2 (06:46→14:13)
[2019-05-12 07:23] LABS: CHLORIDE 105 mEq/L (98-107)
[2019-05-12 07:27] LABS: HEMATOCRIT. 25.5 % (42.0-52.0); HEMOGLOBIN. 8.3 g/dL (14.0-18.0); MEAN CORPUSCULAR VOLUME 86.1 fL (80.0-94.0); MEAN PLATELET VOLUME 7.2 fl (7.4-10.4); PLATELET 268 x1000/uL (130-400); RED BLOOD CELL COUNT 2.96 mill/uL (4.7-6.1); RED CELL DISTRIBUTION WIDTH 13.7 % (11.6-14.6)
[2019-05-12] MEDS ORDERED: LEVOTHYROXINE SODIUM 50MCG TABLET PO SCH (07:30)
[2019-05-12] MEDS: FERROUS SULFATE 325MG TABLET PO SCH ×3 (08:57→17:31)
[2019-05-12] MEDS: ASCORBIC ACID 500 MG TABLET PO SCH (08:57)
[2019-05-12] MEDS: METOPROLOL TARTRATE 100MG TABLET PO SCH (08:58)
[2019-05-12] MEDS: LEVETIRACETAM 250 MG in SODIUM CHLORIDE 0.9% 100 ML IV SCH (08:59)
[2019-05-12] MEDS: PYRIDOSTIGMINE BROMIDE 60MG TABLET PO SCH ×3 (09:00→17:31)
[2019-05-12 09:22] LABS: PLATELET ESTIMATE NORMAL
[2019-05-12] MEDS: BISACODYL 5MG TABLET PO PRN (11:28)
[2019-05-12] MEDS ORDERED: FERR325T23 PO (18:45)
[2019-05-12] MEDS ORDERED: METO100T16 PO (18:45)
[2019-05-12] MEDS ORDERED: ASCO500T20 PO (18:45)
[2019-05-12] MEDS ORDERED: MEST60 PO (18:45)
[2019-05-12] MEDS ORDERED: KEPP250 MT (18:45)
[2019-05-12] MEDS ORDERED: LEVO50TA8 PO (18:45)
[2019-05-13 17:16] LABS: ANTI-NUCLEAR ANTIBODIES DIRECT Positive (Negative)
== END 2019-05-12 19:55 | DRG 720 ==
LOC: ER 08:37 → MICUNO 10:49 → EDBEDREQTM 10:58 → EDBEDREQ 10:58 → ENRESERV 11:15 → MICUNO 12:12 → 5EST 04-30 12:30
PROVIDERS: ADMIT Internal Medicine; ATTEND Internal Medicine
PROC: 02HV33Z Insertion of Infusion Device into Superior Vena Cava, Percutaneous Approach (ICD-10-PCS; 2019-04-27)
PROC: B548ZZA Ultrasonography of Superior Vena Cava, Guidance (ICD-10-PCS; 2019-04-27)
PROC: 5A1D70Z Performance of Urinary Filtration, Intermittent, Less than 6 Hours Per Day (ICD-10-PCS; 2019-04-27)
PROC: 4A00X4Z Measurement of Central Nervous Electrical Activity, External Approach (ICD-10-PCS; principal; 2019-04-28)
PROC: 5A1D70Z Performance of Urinary Filtration, Intermittent, Less than 6 Hours Per Day (ICD-10-PCS; 2019-04-29)
PROC: 02HV33Z Insertion of Infusion Device into Superior Vena Cava, Percutaneous Approach (ICD-10-PCS; 2019-05-05)
PROC: B5181ZA Fluoroscopy of Superior Vena Cava using Low Osmolar Contrast, Guidance (ICD-10-PCS; 2019-05-05)
PROC: B548ZZA Ultrasonography of Superior Vena Cava, Guidance (ICD-10-PCS; 2019-05-05)
DX: A41.01 Sepsis due to Methicillin susceptible Staphylococcus aureus (principal); J96.00 Acute respiratory failure, unspecified whether with hypoxia or hypercapnia; N17.0 Acute kidney failure with tubular necrosis; J69.0 Pneumonitis due to inhalation of food and vomit; E87.2 Acidosis; E43 Unspecified severe protein-calorie malnutrition; G92 Toxic encephalopathy; F11.20 Opioid dependence, uncomplicated; R13.10 Dysphagia, unspecified; I13.10 Hypertensive heart and chronic kidney disease without heart failure, with stage 1 through stage 4 chronic kidney disease, or unspecified chronic kidney disease; M62.82 Rhabdomyolysis; N39.0 Urinary tract infection, site not specified; L89.90 Pressure ulcer of unspecified site, unspecified stage; E87.8 Other disorders of electrolyte and fluid balance, not elsewhere classified; D64.9 Anemia, unspecified; E03.9 Hypothyroidism, unspecified; F10.10 Alcohol abuse, uncomplicated; E87.5 Hyperkalemia; G40.909 Epilepsy, unspecified, not intractable, without status epilepticus; G89.29 Other chronic pain; M19.90 Unspecified osteoarthritis, unspecified site; G70.00 Myasthenia gravis without (acute) exacerbation; M47.816 Spondylosis without myelopathy or radiculopathy, lumbar region; R74.0 Nonspecific elevation of levels of transaminase and lactic acid dehydrogenase [LDH]; N18.9 Chronic kidney disease, unspecified; R47.02 Dysphasia; B19.20 Unspecified viral hepatitis C without hepatic coma; B96.89 Other specified bacterial agents as the cause of diseases classified elsewhere; E86.0 Dehydration; M51.36 Other intervertebral disc degeneration, lumbar region; E86.9 Volume depletion, unspecified; K59.00 Constipation, unspecified; K80.20 Calculus of gallbladder without cholecystitis without obstruction; K70.30 Alcoholic cirrhosis of liver without ascites; E61.1 Iron deficiency; E06.3 Autoimmune thyroiditis; Z88.8 Allergy status to other drugs, medicaments and biological substances; Z91.041 Radiographic dye allergy status; Z68.30 Body mass index [BMI] 30.0-30.9, adult; Z79.82 Long term (current) use of aspirin; Z79.899 Other long term (current) drug therapy; Z86.19 Personal history of other infectious and parasitic diseases; Z78.1 Physical restraint status
CPT/HCPCS: 36415; 36600; 70551; 71045; 72100; 72141; 72146; 72148; 73522; 74176; 76700; 76937; 78582; 80048; 80076; 80202; 80305; 81003; 82105; 82140; 82248; 82375; 82533; 82550; 82728; 82805; 82962; 83036; 83519; 83520; 83540; 83550; 83605; 83735; 83880; 84100; 84132; 84145; 84439; 84443; 84481; 84484; 84550; 85379; 85651; 86038; 86140; 86160; 86256; 86376; 86431; 86671; 86705; 86706; 86709; 86803; 87077; 87340; 87389; 92610; 93005; 93306; 93970; 94640; 94644; 96374; 97163; 97167; 97530; 97535; 99285; A9558; C1725; C1752; J0610; J0690; J1650; J1815; J1953; J2060; J2270; J2405; J2543; J3370; J3411; J3475; J3490; J7030; J7040; J7050; J7060; J7608; J7611; J7620; P9041; Q0163

== ENCOUNTER 2021-10-29 12:06 | Emergency (ER) | payer OTHER ==
[~2021-10-29] VITALS: Ht 180.3 cm; Wt 91.0 kg
[~2021-10-29 12:06] MED LIST changes: +ASCO500T20 PO; -ASPI-1393 PO; -ATENOLOL; +FERR325T23 PO; +KEPP250 MT; +LEVO50TA8 PO; -LISINOPRIL; +MEST60 PO; +METO100T16 PO
[2021-10-29] MEDS ORDERED: ONDANSETRON HCL 4MG/2ML INJ IV STA (12:12)
[2021-10-29] MEDS ORDERED: MORPHINE SULFATE 4 MG/ML CPJ (NOT FOR IM USE) IV STA (12:12)
[2021-10-29] MEDS ORDERED: VANCOMYCIN 1G PREMIX 200 ML IV SCH (13:00)
[2021-10-29] MEDS ORDERED: CEFAZOLIN 1000MG PREMIX 50 ML IV ONE (13:00)
[2021-10-29 13:15] LABS: HEMATOCRIT. 28.6 % (42.0-52.0); HEMOGLOBIN. 9.1 g/dL (14.0-18.0); MEAN CORPUSCULAR HEMOGLOBIN 26.9 pg (28.0-32.0); MEAN CORPUSCULAR VOLUME 84.7 fL (80.0-94.0); PLATELET 307 x1000/uL (130-400); RED BLOOD CELL COUNT 3.37 mill/uL (4.7-6.1); RED CELL DISTRIBUTION WIDTH 15.6 % (11.6-14.6)
[2021-10-29 13:21] LABS: CHLORIDE 107 mEq/L (98-107)
[2021-10-29 14:01] LABS: PLATELET ESTIMATE NORMAL
[2021-10-29 14:33] VITALS: BP 133/91
== END 2021-10-29 15:47 | disposition hospice, inpatient (51) ==
LOC: ER 12:06 → CANBEDREQ 18:27
DX: L03.115 Cellulitis of right lower limb (principal); I73.9 Peripheral vascular disease, unspecified; D64.9 Anemia, unspecified; R74.01 Elevation of levels of liver transaminase levels; I10 Essential (primary) hypertension; M19.90 Unspecified osteoarthritis, unspecified site; G40.909 Epilepsy, unspecified, not intractable, without status epilepticus; E89.0 Postprocedural hypothyroidism; F17.210 Nicotine dependence, cigarettes, uncomplicated; F11.10 Opioid abuse, uncomplicated; Z88.8 Allergy status to other drugs, medicaments and biological substances; Z91.041 Radiographic dye allergy status
CPT/HCPCS: 36415; 71045; 73630; 80053; 83605; 85025; 85651; 86140; 87040; 87077; 87186; 93923; 96365; 96368; 96375; 99285; J0690; J2270; J2405; J3370

== ENCOUNTER 2024-03-22 16:47 | Emergency (ER) | payer OTHER ==
[~2024-03-22] VITALS: Ht 180.3 cm; Wt 78.0 kg
[2024-03-22 16:59] VITALS: BP 145/86; PULSE 101; RESP 16; TEMP 97.7; O2SAT 97
[2024-03-22] MEDS ORDERED: GUAI-450 MT (18:30)
== END 2024-03-22 19:53 | disposition home or self-care (01) ==
LOC: ER 16:47
DX: B34.9 Viral infection, unspecified (principal); I10 Essential (primary) hypertension; Z79.899 Other long term (current) drug therapy
CPT/HCPCS: 71045; 99283

== ENCOUNTER 2024-04-09 12:49 | Emergency (ER) | payer OTHER ==
[~2024-04-09] VITALS: Ht 177.8 cm; Wt 68.0 kg
[~2024-04-09 12:49] MED LIST changes: +GUAI-450 MT
[2024-04-09 13:00] VITALS: BP 114/68; PULSE 78; RESP 16; TEMP 98; O2SAT 100
[2024-04-09 13:52] LABS: BASOPHILS % 0.2 % (0.0-2.0); EOSINOPHILS % 2.5 % (0.0-5.0); HEMATOCRIT. 33.8 % (42.0-52.0); HEMOGLOBIN. 11.1 g/dL (14.0-18.0); LYMPHOCYTES % 7.1 % (20.0-50.0); MEAN CORPUSCULAR HEMOGLOBIN 29.4 pg (28.0-32.0); MEAN CORPUSCULAR HGB CONC 32.9 g/dL (31.0-37.0); MEAN CORPUSCULAR VOLUME 89.4 fL (80.0-94.0); MEAN PLATELET VOLUME 8.2 fl (7.4-10.4); NEUTROPHILS % 81.2 % (40.0-76.0); PLATELET 318 x1000/uL (130-400); RED BLOOD CELL COUNT 3.78 mill/uL (4.7-6.1); RED CELL DISTRIBUTION WIDTH 14.6 % (11.6-14.6); WHITE BLOOD COUNT 18.8 x1000/uL (4.5-11.0)
[2024-04-09 14:03] LABS: CHLORIDE 106 mEq/L (98-107); SODIUM 133 mEq/L (136-145)
[2024-04-09 14:04] LABS: CALCIUM 9.5 mg/dL (8.7-10.4); CARBON DIOXIDE 24 mEq/L (21-32)
[2024-04-09 14:09] LABS: CREATININE 1.7 mg/dL (0.6-1.3); GLUCOSE 112 mg/dL (70-105); UREA NITROGEN BLOOD 65 mg/dL (9-23)
[2024-04-09 14:20] LABS: POTASSIUM 6.7 mEq/L (3.5-5.1)
[2024-04-09 14:21] LABS: TROPONIN I HIGH SENSITIVITY < 4 ng/L (3.0-53)
[2024-04-09 15:21] LABS: PHOSPHORUS 4.8 mg/dL (2.5-4.9)
[2024-04-09 15:23] LABS: THYROID STIMULATING HORMONE 10.25 uIU/mL (0.55-4.78)
== END 2024-04-09 14:30 ==
LOC: ER 12:49
DX: E87.5 Hyperkalemia (principal); F11.10 Opioid abuse, uncomplicated; I10 Essential (primary) hypertension; E89.0 Postprocedural hypothyroidism; Z88.8 Allergy status to other drugs, medicaments and biological substances; Z79.899 Other long term (current) drug therapy; Z86.59 Personal history of other mental and behavioral disorders
CPT/HCPCS: 36415; 80048; 83735; 84100; 84443; 84484; 85025; 93005; 99284

== ENCOUNTER 2024-04-12 10:27 | Inpatient (IN) | payer OTHER ==
[~2024-04-12] VITALS: Ht 177.8 cm; Wt 68.0 kg
[2024-04-12] MEDS: BLOOD SUGAR DIAGNOSTIC STRIP TEST SCH (01:44)
[2024-04-12 10:35] VITALS: O2SAT 99
[2024-04-12 11:04] LABS: BASOPHILS % 0.5 % (0.0-2.0); EOSINOPHILS % 3.7 % (0.0-5.0); HEMATOCRIT. 31.3 % (42.0-52.0); HEMOGLOBIN. 10.3 g/dL (14.0-18.0); LYMPHOCYTES % 8.8 % (20.0-50.0); MEAN CORPUSCULAR HEMOGLOBIN 29.3 pg (28.0-32.0); MEAN CORPUSCULAR HGB CONC 32.9 g/dL (31.0-37.0); MEAN CORPUSCULAR VOLUME 88.8 fL (80.0-94.0); MEAN PLATELET VOLUME 8.4 fl (7.4-10.4); MONOCYTES % 11.6 % (2.0-8.0); NEUTROPHILS % 75.4 % (40.0-76.0); PLATELET 278 x1000/uL (130-400); RED BLOOD CELL COUNT 3.52 mill/uL (4.7-6.1); RED CELL DISTRIBUTION WIDTH 14.3 % (11.6-14.6); WHITE BLOOD COUNT 8.8 x1000/uL (4.5-11.0)
[2024-04-12 11:18] LABS: POTASSIUM 5.7 mEq/L (3.5-5.1)
[2024-04-12 11:19] LABS: CALCIUM 9.1 mg/dL (8.7-10.4)
[2024-04-12 11:24] LABS: CREATININE 1.6 mg/dL (0.6-1.3)
[2024-04-12] MEDS ORDERED: LACTATED RINGERS 500 ML IV SCH (11:30)
[2024-04-12] MEDS ORDERED: DEXTROSE 50% WATER 50ML SYRINGE IV ONE (12:00)
[2024-04-12] MEDS ORDERED: INSULIN REGULAR (HUMULIN R) 1000UNITS/10ML VIAL IV ONE (12:00)
[2024-04-12] MEDS ORDERED: CLONIDINE 0.1MG TABLET PO PRN (12:30)
[2024-04-12] MEDS ORDERED: ACETAMINOPHEN 325MG TABLET PO PRN ×2 (12:30)
[2024-04-12] MEDS ORDERED: GUAIFENESIN 200MG/10ML SUGAR FREE UDC PO PRN (12:30)
[2024-04-12] MEDS ORDERED: IPRATROPIUM/ALBUTEROL 0.5-3(2.5)MG/3ML NEB HHN PRN (12:30)
[2024-04-12] MEDS ORDERED: DEXTROSE 50% WATER 50ML SYRINGE IV PRN (13:15)
[2024-04-12 13:51] LABS: PHOSPHORUS 5.6 mg/dL (2.5-4.9)
[2024-04-12] MEDS: MAGNESIUM/ALUMINUM HYDROXIDE/SIMETHICONE 30ML UDC PO PRN (16:48)
[2024-04-12] MEDS: DEXTROSE 50% WATER 50ML SYRINGE IV NR (16:48)
[2024-04-12] MEDS: ONDANSETRON HCL 4MG/2ML INJ IV PRN (16:49)
[2024-04-12] MEDS: SODIUM CHLORIDE 0.9% 1,000 ML IV SCH (16:49)
[2024-04-12] MEDS: INSULIN REGULAR (HUMULIN R) 1000UNITS/10ML VIAL IV NR (16:50)
[2024-04-12] MEDS: SODIUM ZIRCONIUM CYCLOSILICATE 10GM/PACKET PO NR (17:08)
[2024-04-12 19:13] LABS: CHLORIDE 109 mEq/L (98-107); SODIUM 135 mEq/L (136-145)
[2024-04-12 19:14] LABS: CALCIUM 9.1 mg/dL (8.7-10.4); CARBON DIOXIDE 27 mEq/L (21-32)
[2024-04-12 19:19] LABS: CREATININE 1.4 mg/dL (0.6-1.3); GLUCOSE 152 mg/dL (70-105); UREA NITROGEN BLOOD 47 mg/dL (9-23)
[2024-04-12 19:24] LABS: CLARITY URINE CLEAR (CLEAR); COLOR URINE YELLOW (YELLOW); GLUCOSE URINE TRACE (NEGATIVE); KETONES URINE NEGATIVE (NEGATIVE); LEUKOCYTE ESTERASE URINE NEGATIVE (NEGATIVE); NITRITE URINE NEGATIVE (NEGATIVE); OCCULT BLOOD URINE NEGATIVE (NEGATIVE); PROTEIN URINE NEGATIVE (NEGATIVE); UROBILINOGEN URINE 0.2 E.U./dL (0.2-1.0)
[2024-04-12 19:32] LABS: *AMPHETAMINES SCREEN URINE NEGATIVE (NEGATIVE); *BARBITURATES SCREEN URINE NEGATIVE (NEGATIVE); *BENZODIAZEPINES SCREEN URINE NEGATIVE (NEGATIVE); *COCAINE SCREEN URINE NEGATIVE (NEGATIVE); CANNABINOID URINE SCREEN NEGATIVE (NEGATIVE); CREATININE URINE RANDOM 35.2 mg/dL; ECSTASY MDMA SCREEN URINE NEGATIVE (NEGATIVE); METHADONE URINE SCREEN NEGATIVE (NEGATIVE); OPIATES URINE SCREEN NEGATIVE (NEGATIVE); PHENCYCLIDINE URINE SCREEN NEGATIVE (NEGATIVE)
[2024-04-12 19:38] LABS: BACTERIA URINE TRACE
[2024-04-12 19:39] LABS: RBC URINE NONE SEEN /hpf (0-2); SQUAMOUS EPITHELIAL CELL URINE RARE /lpf (RARE/1+); WBC URINE 0-2 /hpf (0-2)
[2024-04-12] MEDS: INSULIN LISPRO 100 UNITS/ML SUBCUT SCH (19:40)
[2024-04-12 19:41] LABS: POTASSIUM 6.6 mEq/L (3.5-5.1)
[2024-04-12] MEDS: ENOXAPARIN 40MG/0.4ML SYR SUBCUT SCH (20:02)
[2024-04-12 20:43] LABS: POTASSIUM 5.6 mEq/L (3.5-5.1)
[2024-04-12 23:00] VITALS: BP 139/82; PULSE 55; RESP 20; TEMP 97.7
[2024-04-13] VITALS: BP 107/60; PULSE 65; RESP 20; TEMP 97.5
[2024-04-13] MEDS: SODIUM CHLORIDE 0.9% 1,000 ML IV ONE (01:45)
[2024-04-13] MEDS: DEXTROSE 50% WATER 50ML SYRINGE IV NR ×3 (01:45→18:15)
[2024-04-13] MEDS: INSULIN LISPRO 100 UNITS/ML SUBCUT NR (01:45)
[2024-04-13 04:00] VITALS: BP 118/75; PULSE 71; RESP 20; TEMP 97.7
[2024-04-13] MEDS: OMEPRAZOLE 20MG CAPSULE EXTENDED RELEASE PO SCH (05:46)
[2024-04-13] MEDS ORDERED: LEVOTHYROXINE SODIUM 137MCG TABLET PO SCH (06:40)
[2024-04-13 07:15] LABS: CHLORIDE 111 mEq/L (98-107); POTASSIUM 5.9 mEq/L (3.5-5.1); SODIUM 139 mEq/L (136-145)
[2024-04-13 07:16] LABS: CALCIUM 8.7 mg/dL (8.7-10.4); CARBON DIOXIDE 25 mEq/L (21-32)
[2024-04-13 07:20] LABS: IRON 45 ug/dL (65-175)
[2024-04-13 07:21] LABS: CREATININE 1.1 mg/dL (0.6-1.3); GLUCOSE 94 mg/dL (70-105); TRIGLYCERIDE 123 mg/dL (0-150); UREA NITROGEN BLOOD 37 mg/dL (9-23)
[2024-04-13 07:22] LABS: LDL CHOLESTEROL 104 mg/dL (5-100)
[2024-04-13 07:23] LABS: ALBUMIN 3.3 g/dL (3.2-4.8); CHOLESTEROL 147 mg/dL (<200); HDL CHOLESTEROL 29 mg/dL (>55); TOTAL IRON BINDING CAPACITY 252 ug/dl (250-425)
[2024-04-13 07:25] LABS: T4 FREE 0.93 ng/dL (0.89-1.76)
[2024-04-13 07:28] LABS: BASOPHILS % 0.5 % (0.0-2.0); EOSINOPHILS % 5.9 % (0.0-5.0); HEMATOCRIT. 34.3 % (42.0-52.0); HEMOGLOBIN. 11.2 g/dL (14.0-18.0); LYMPHOCYTES % 9.8 % (20.0-50.0); MEAN CORPUSCULAR HEMOGLOBIN 28.9 pg (28.0-32.0); MEAN CORPUSCULAR HGB CONC 32.7 g/dL (31.0-37.0); MEAN CORPUSCULAR VOLUME 88.4 fL (80.0-94.0); MEAN PLATELET VOLUME 9.3 fl (7.4-10.4); MONOCYTES % 13.1 % (2.0-8.0); NEUTROPHILS % 70.7 % (40.0-76.0); PLATELET 214 x1000/uL (130-400); RED BLOOD CELL COUNT 3.87 mill/uL (4.7-6.1); RED CELL DISTRIBUTION WIDTH 14.1 % (11.6-14.6); WHITE BLOOD COUNT 7.8 x1000/uL (4.5-11.0)
[2024-04-13 07:42] LABS: FERRITIN 263 ng/mL (22-322); FOLIC ACID (FOLATE) SERUM 19.03 ng/mL (>5.38); VITAMIN B12 SERUM 718 pg/mL (211-911)
[2024-04-13 08:00] VITALS: BP 117/70; PULSE 73; RESP 18; TEMP 97
[2024-04-13] MEDS: INSULIN REGULAR (HUMULIN R) 1000UNITS/10ML VIAL IV NR ×2 (09:00→18:14)
[2024-04-13] MEDS ORDERED: CALCIUM GLUCONATE 1,000 MG in DEXT 5% WATER 90 ML IV STA (09:16)
[2024-04-13] MEDS: SODIUM BICARBONATE 8.4% 50MEQ/50ML SYR IV NR ×2 (09:29→17:30)
[2024-04-13] MEDS ORDERED: SODIUM POLYSTYRENE SULFONATE 15 G/60 ML BOT PO ONE (09:30)
[2024-04-13] MEDS: QUETIAPINE FUMARATE 200MG TABLET PO SCH (09:42)
[2024-04-13] MEDS: SODIUM ZIRCONIUM CYCLOSILICATE 10GM/PACKET PO NR (09:44)
[2024-04-13] MEDS: CALCIUM GLUCONATE 1GM PREMIX 50 ML IV NR (11:51)
[2024-04-13 12:00] VITALS: BP 138/81; PULSE 77; RESP 18; TEMP 97.6
[2024-04-13 16:00] VITALS: BP 122/75; PULSE 79; RESP 15; TEMP 97.4
[2024-04-13 16:40] LABS: POTASSIUM 5.7 mEq/L (3.5-5.1)
[2024-04-13] MEDS: SEVELAMER CARBONATE 800 MG TABLET PO SCH (17:10)
[2024-04-13] MEDS ORDERED: ALBUTEROL (0.083%) 2.5MG/3ML NEB HHN NR (17:30)
[2024-04-13] MEDS: DOCUSATE SODIUM 100MG CAPSULE PO PRN (17:44)
[2024-04-13] MEDS: SODIUM POLYSTYRENE SULFONATE 15 G/60 ML BOT PO NR (17:44)
[2024-04-13] MEDS: FUROSEMIDE 100MG/10ML VIAL IV NR (18:15)
[2024-04-13] MEDS: CALCIUM CHLORIDE 1GM/10ML SYR IV NR (18:15)
[2024-04-13 20:00] VITALS: BP 121/72; PULSE 75; RESP 19; TEMP 98.2
[2024-04-13 22:10] LABS: POTASSIUM 5.4 mEq/L (3.5-5.1)
[2024-04-14] VITALS: BP 100/61; PULSE 79; RESP 20; TEMP 97.9
[2024-04-14 08:00] VITALS: BP 119/70; PULSE 79; RESP 18; TEMP 96.9
[2024-04-14] MEDS: LEVOTHYROXINE SODIUM 137MCG TABLET PO SCH (08:00)
[2024-04-14 12:00] VITALS: BP 113/73; PULSE 91; RESP 19; TEMP 97.4
[2024-04-14 13:22] LABS: CHLORIDE 108 mEq/L (98-107); POTASSIUM 5.1 mEq/L (3.5-5.1); SODIUM 141 mEq/L (136-145)
[2024-04-14 13:23] LABS: CALCIUM 8.7 mg/dL (8.7-10.4); CARBON DIOXIDE 29 mEq/L (21-32)
[2024-04-14 13:28] LABS: CREATININE 0.9 mg/dL (0.6-1.3); GLUCOSE 92 mg/dL (70-105); UREA NITROGEN BLOOD 24 mg/dL (9-23)
== END 2024-04-14 15:55 | disposition home or self-care (01) | DRG 425 ==
LOC: ER 10:27 → 7EST 11:56 → EDBEDREQTM 12:32 → EDBEDREQ 12:32 → 7WST 04-13 15:40 → 7EST 04-13 16:03
PROVIDERS: ADMIT Internal Medicine; ATTEND Internal Medicine
DX: E87.5 Hyperkalemia (principal); N17.0 Acute kidney failure with tubular necrosis; E11.22 Type 2 diabetes mellitus with diabetic chronic kidney disease; D64.9 Anemia, unspecified; E11.65 Type 2 diabetes mellitus with hyperglycemia; E89.0 Postprocedural hypothyroidism; R56.9 Unspecified convulsions; I12.9 Hypertensive chronic kidney disease with stage 1 through stage 4 chronic kidney disease, or unspecified chronic kidney disease; N18.9 Chronic kidney disease, unspecified; F17.210 Nicotine dependence, cigarettes, uncomplicated; F41.9 Anxiety disorder, unspecified; Z91.041 Radiographic dye allergy status
CPT/HCPCS: 36415; 71045; 76770; 80048; 80061; 80305; 81003; 82040; 82270; 82570; 82607; 82728; 82746; 82962; 83036; 83540; 83550; 83735; 84100; 84132; 84156; 84300; 84439; 84443; 85025; 93005; 99291; J0610; J1650; J1815; J1940; J2405; J3490